=== PATIENT | female | born 1990 | race African-American/Black ===

== ENCOUNTER 2019-11-28 22:00 | Outpatient (CLI) | payer OTHER, SELFPAY ==
[2020-02-13 07:11] LABS: ALT/SGPT 11 U/L (12-78); BILIRUBIN,TOTAL 0.4 MG/DL (0.2-1.0); CREATININE FOR GFR 0.49 MG/DL (0.55-1.30); GLOMERULAR FILTRATION RATE > 60.0 (>60); HEPATITIS B SURFACE ANTIGEN NEGATIVE (NEGATIVE); LDH LACTATE DEHYDROGENASE 174 U/L (84-246); URIC ACID 4.4 MG/DL (2.6-6.0)
== END 2019-11-29 06:05 ==
LOC: M LDO 22:00
PROVIDERS: ATTEND Obstetrics & Gynecology
DX: O13.3 Gestational [pregnancy-induced] hypertension without significant proteinuria, third trimester (principal); O47.1 False labor at or after 37 completed weeks of gestation; Z3A.37 37 weeks gestation of pregnancy

== ENCOUNTER 2019-12-01 11:00 | Inpatient (IN) | payer SELFPAY ==
[~2019-12-01] VITALS: Ht 157.5 cm; Wt 69.3 kg
--- NOTE | 2019-12-01 15:13 | REPVR ---
PROCEDURE INFORMATION: Exam: US After First Trimester, Transabdominal Exam date and time: 12/01/2019 2:43 PM Age: 28 years old Clinical indication: Lmp or gestational age (in weeks): 37; Other: Hypertension; ; Additional info: Hypertension, , no prior sono, anatomy, dating TECHNIQUE: Imaging protocol: Real-time transabdominal obstetrical ultrasound of the maternal pelvis and a second or third trimester with image documentation. COMPARISON: No relevant prior studies available. FINDINGS: Other findings: The extremities and face/lips are not seen. Gestation: Single live intrauterine gestation. heart rate: heart rate is 155 beats minute. Presentation: There is a single intrauterine gestation in cephalic position. Placenta: Placenta is not previa. There is no abruption. Is grade 2 and fundal. Amniotic fluid: Amniotic fluid is normal for gestational age. Amniotic fluid index: Amniotic fluid index is 13.5. ANATOMY: Normal cisterna magna, stomach, kidneys, spine, four-chamber heart, outflow tracts, urinary bladder, three-vessel cord and cord insertion are seen. There is a nuchal cord noted by the technologist. BIOMETRY: Gestational age (AUA): Average ultrasonographic age is 36 weeks 5 days. Estimated due date (AUA): Estimated date of confinement is 12/24/2019. Estimated weight: Estimated weight is 3066 g. Biparietal diameter: Biparietal diameter, 36 weeks 0 days. Head circumference: Head circumference, 36 weeks 6 days. Abdominal circumference: Abdominal circumference, 37 weeks 4 days. Femur length: Femur length, 36 weeks 1 day. DOPPLER: Umbilical artery Doppler: Umbilical cord S/D ratio is 2.3. MATERNAL ANATOMY: Uterus: Unremarkable. Cervix: The cervix is closed at 3.8 cm. Right adnexa: Ovary is obscured by overlying bowel gas. Left adnexa: Ovary is obscured by overlying bowel gas. IMPRESSION: Single engine gestation. No old films are available. Anatomy is partial as above. Electronically signed by: Gordon Lehman On 12/01/2019 15:13:56 PM
[2019-12-01] MEDS ORDERED: PENICILLIN G POTASSIUM IV 5 MU in D5W MINI-BAG PLUS 100 ML IV STA (15:44)
[2019-12-01] MEDS ORDERED: PRENTAB9 PO (15:54)
[2019-12-01 16:11] LABS: HEMATOCRIT 39.7 % (36.0-47.0); HEMOGLOBIN 12.9 g/dl (12.0-15.5); MEAN CORPUSCULAR HEMOGLOBIN 30.9 pg (27.0-33.0); MEAN CORPUSCULAR HGB CONC 32.5 g/dl (32.0-36.5); PLATELET COUNT, AUTOMATED 111 10^3/uL (150-450); RED BLOOD COUNT 4.18 10^6/uL (4.00-5.40)
[2019-12-01] MEDS: miSOPROStol 50 MCG 1/2 TAB (S0191) PO SCH ×2 (17:08→21:08)
[2019-12-01 17:40] LABS: ALT/SGPT 12 U/L (12-78); BILIRUBIN,TOTAL 0.7 MG/DL (0.2-1.0); CREATININE FOR GFR 0.67 MG/DL (0.55-1.30); GLOMERULAR FILTRATION RATE > 60.0 (>60); HIV 1&2 SCREEN CENTAUR NEGATIVE (NEGATIVE); LDH LACTATE DEHYDROGENASE 176 U/L (84-246); URIC ACID 5.5 MG/DL (2.6-6.0)
[2019-12-01 18:58] LABS: CREATININE,RANDOM URINE 58.9 MG/DL; TOTAL PROTEIN,RANDOM URINE 7.8 MG/DL (0.0-12.0)
[2019-12-01] MEDS ORDERED: LR 1,000 ML IV SCH (21:35)
[2019-12-01] MEDS ORDERED: OXYTOCIN DRIP 30 UNITS in IV 1 EA IV SCH (21:45)
[2019-12-01] MEDS ORDERED: FENTANYL 2MCG/ML ROPIVACAINE 0.2% IN 0.9% NACL 100ML IVBAG As Ordered ONE (23:49)
[2019-12-02] MEDS ORDERED: OXYTOCIN 30 UNITS IN 0.9% NaCl 500ML IV BAG (J2590) As Ordered ONE ×2 (00:12→02:46)
[2019-12-02 00:23] LABS: HEMATOCRIT 40.9 % (36.0-47.0); HEMOGLOBIN 13.6 g/dl (12.0-15.5); MEAN CORPUSCULAR HEMOGLOBIN 31.3 pg (27.0-33.0); MEAN CORPUSCULAR HGB CONC 33.3 g/dl (32.0-36.5); MEAN CORPUSCULAR VOLUME 94.2 fl (80.0-96.0); PLATELET COUNT, AUTOMATED 127 10^3/uL (150-450); RED BLOOD COUNT 4.34 10^6/uL (4.00-5.40)
[2019-12-02] MEDS ORDERED: PENICILLIN G POTASSIUM IV 5 MU in D5W MINI-BAG PLUS 100 ML IV ONE (01:00)
[2019-12-02] MEDS ORDERED: OXYTOCIN DRIP 30 UNITS in IV 1 EA IV SCH (01:11)
[2019-12-02] MEDS ORDERED: ACETAMINOPHEN TAB 650MG DOSE (2X325MG) PO PRN (01:15)
[2019-12-02] MEDS ORDERED: METHYLERGONOVINE MALEATE 0.2 MG TAB PO PRN (01:15)
[2019-12-02] MEDS ORDERED: DIBUCAINE 1% OINTMENT 30GM TOP PRN (01:15)
[2019-12-02] MEDS ORDERED: RHOGAM 300 MCG (1500 IU) INJ (J2790) IM SCH (01:15)
[2019-12-02] MEDS ORDERED: MEASLES,MUMPS,RUBELLA VACCINE INJ (MMR-II) (90707) SC SCH (01:15)
[2019-12-02] MEDS ORDERED: IBUPROFEN 600MG TAB PO PRN (01:15)
[2019-12-02] MEDS ORDERED: DOCUSATE SODIUM 100 MG CAP PO PRN (01:15)
[2019-12-02] MEDS: IBUPROFEN 800 MG TAB PO PRN ×2 (01:28→09:49)
[2019-12-02] MEDS ORDERED: OXYTOCIN DRIP 30 UNITS in IV 1 EA IV ONE (02:45)
[2019-12-02] MEDS: ACETAMINOPHEN 500 MG TAB PO PRN ×2 (03:22→20:40)
[2019-12-02 04:46] VITALS: BP 139/89
[2019-12-02] MEDS ORDERED: PENICILLIN G POTASSIUM IV 2.5 MU in IV 1 EA IV SCH (05:00)
[2019-12-02] MEDS ORDERED: miSOPROStol 200 MCG TAB (S0191) PR ONE (05:15)
[2019-12-02 06:00] VITALS: BP 133/78
[2019-12-02 09:38] LABS: BASO % 0.4 % (0.0-1.0); EOS # 0.1 10^3/uL (0.0-0.5); EOS % 1.1 % (0.0-3.0); HEMATOCRIT 37.3 % (36.0-47.0); HEMOGLOBIN 12.4 g/dl (12.0-15.5); LYMPH # 1.6 10^3/uL (1.5-5.0); LYMPH % 18.3 % (24.0-44.0); MEAN CORPUSCULAR HGB CONC 33.2 g/dl (32.0-36.5); MEAN CORPUSCULAR VOLUME 93.3 fl (80.0-96.0); MONO # 0.5 10^3/uL (0.0-0.8); MONO % 6.2 % (0.0-5.0); NEUTROPHILS # 6.2 10^3/uL (1.5-8.5); NEUTROPHILS % 73.4 % (36.0-66.0); PLATELET COUNT, AUTOMATED 107 10^3/uL (150-450); WHITE BLOOD COUNT 8.5 10^3/uL (4.0-10.0)
[2019-12-02 09:47] LABS: APPEARANCE, URINE MANUAL CLEAR (CLEAR); COLOR, URINE MANUAL YELLOW (YELLOW)
[2019-12-02 09:48] LABS: BILIRUBIN, URINE MANUAL NEGATIVE (NEGATIVE); BLOOD URINE MANUAL NEGATIVE (NEGATIVE); GLUCOSE, URINE (UA) MANUAL NEGATIVE (NEGATIVE); KETONE, URINE MANUAL 1+ mg/dL (NEGATIVE); LEUKOCYTE ESTERASE, URINE MAN NEGATIVE (NEGATIVE); NITRITE, URINE MANUAL NEGATIVE (NEGATIVE); PROTEIN, URINE MANUAL NEGATIVE (NEGATIVE); UROBILINOGEN, URINE MANUAL NORMAL (NORMAL)
[2019-12-02] MEDS: PRENATAL VITAMINS CHEWABLE TABLET PO SCH (09:48)
[2019-12-02 16:58] LABS: AMPHETAMINES URINE REFLEX NEGATIVE (NEGATIVE); BARBITURATES URINE REFLEX NEGATIVE (NEGATIVE); BENZODIAZEPINES URINE REFLEX NEGATIVE (NEGATIVE); CANNABINOIDS URINE REFLEX NEGATIVE (NEGATIVE); COCAINE METABOLITE URINE REFLE NEGATIVE (NEGATIVE); METHADONE URINE REFLEX NEGATIVE (NEGATIVE); OPIATES URINE REFLEX NEGATIVE (NEGATIVE); PHENCYCLIDINE URINE REFLEX NEGATIVE (NEGATIVE)
[2019-12-02 18:00] VITALS: BP 135/89
[2019-12-03] MEDS: IBUPROFEN 800 MG TAB PO PRN (04:27)
[2019-12-03 06:00] VITALS: BP 155/91
[2019-12-03] MEDS: ACETAMINOPHEN 500 MG TAB PO PRN (07:52)
[2019-12-03] MEDS: PRENATAL VITAMINS CHEWABLE TABLET PO SCH (07:52)
--- NOTE | 2019-12-03 09:16 | IPNPDOC ---
Progress Note Date of Service: Dec 03, 2019 Day#: 1 Progress Note SUBJECT: Patient is a 28-year-old female who had an uncomplicated vaginal deli very. She has been ambulating, voiding spontaneously without issue and tolerating regular diet. Breast feeding without issue. OBJECTIVE: VITAL SIGNS: See vitals-some elevated BPS, afebrile. Alert and oriented times three. Breath sounds clear to auscultation. Heart rate: Regular rate and rhythm, no murmurs, rubs or gallops. Abdomen: Fundus firm at U-2. Soft, NTTP. Minimal lochia. ASSESSMENT: Day 1 PLAN: 1. Continue supportive nursing care. 2. Anticipate discharge to home tomorrow. 3. Preeclamptic labs ordered. VS, I&O, 24H, Fishbone Vital Signs/I&O Vital Signs Date Time Temp Pulse Resp B/P (MAP) Pulse Ox O2 Delivery O2 Flow Rate FiO2 12/03/19 06:00 97.9 65 18 155/91 (112) 12/02/19 18:00 100 Room Air Laboratory Data 24H LABS Laboratory Tests 2 12/02/19 15:55: Urine Opiates Screen NEGATIVE, Urine Methadone Screen NEGATIVE, Urine Barbiturates Screen NEGATIVE, Urine Phencyclidine Screen NEGATIVE, Urine Amphetamines Screen NEGATIVE, Urine Benzodiazepines Screen NEGATIVE, Urine Cocaine Metabolite Screen NEGATIVE, Urine Cannabinoids Screen NEGATIVE Microbiology Microbiology 11/29/19 Group B Streptococcus Screen ([facility]) - Final, Complete Strep Agalactiae Group B 11/29/19 Urine Culture - Final, Complete ILYA BARBOZA CNM Dec 03, 2019 09:16
[2019-12-03 14:00] VITALS: BP 136/80
[2019-12-03 14:08] LABS: HEMATOCRIT 35.5 % (36.0-47.0); HEMOGLOBIN 11.8 g/dl (12.0-15.5); MEAN CORPUSCULAR HEMOGLOBIN 31.1 pg (27.0-33.0); MEAN CORPUSCULAR HGB CONC 33.2 g/dl (32.0-36.5); MEAN CORPUSCULAR VOLUME 93.4 fl (80.0-96.0); PLATELET COUNT, AUTOMATED 126 10^3/uL (150-450)
[2019-12-03 14:59] LABS: ALT/SGPT 13 U/L (12-78); BILIRUBIN,TOTAL 0.3 MG/DL (0.2-1.0); CREATININE FOR GFR 0.68 MG/DL (0.55-1.30); GLOMERULAR FILTRATION RATE > 60.0 (>60); LDH LACTATE DEHYDROGENASE 295 U/L (84-246); URIC ACID 4.2 MG/DL (2.6-6.0)
[2019-12-03 18:15] VITALS: BP 144/98
[2019-12-04 06:00] VITALS: BP 138/92
[2019-12-04] MEDS: PRENATAL VITAMINS CHEWABLE TABLET PO SCH (07:35)
--- NOTE | 2020-01-17 09:39 | HPE ---
HISTORY OF PRESENT ILLNESS: Nickie is a 28-year-old 5, para 4-0-0-5 at 38 weeks gestation with a reported EDC of 12/15/2019. There is no record for review. She presents to Labor and Delivery with a report of nausea and vomiting, as well as mild headache that she did not take Tylenol for. She has reported it as a 5/10 for discomfort. She reports some mild low abdominal cramping. She denies bleeding, leakage of fluid. The fetus has been active. Her care was initiated at [facility] in [place]. She does not recall the name of the office or who she saw at the office. She reports moving to [facility] approximately three weeks ago. She has not established any care. There is no obstetric history for review. OBSTETRIC HISTORY: * June 2009, 38 week gestation, spontaneous vaginal delivery for a live male fetus. * September 2010, 38 weeks gestation, spontaneous vaginal delivery for a male fetus. * September 2011, 38 weeks gestation, spontaneous vaginal delivery for a male fetus. * February 2015, 38 weeks gestation, spontaneous vaginal delivery for a female fetus. That was complicated by depression and a new father of the baby. OBSTETRIC LABS: Labs were drawn here at this hospital two days ago. Her blood type is O positive. Antibody screen negative. Hepatitis B surface antigen negative. Syphilis is negative. Rubella, immune. Her gestational diabetic screening is unknown. Her GBS is unknown. It is due to be reported tomorrow in the morning. Her hepatitis C antibody is unknown. Urine culture and sensitivity unknown. She did undergo a preeclamptic profile at that time on the with an AST 12, ALT 11, LDH 174. PAST MEDICAL HISTORY: * Gestational diabetes. * Benign cyst in her right breast. * Arm surgery due to an accident in her young adulthood. PAST SURGICAL HISTORY: * Breast biopsy. * Arm surgery. FAMILY HISTORY: Diabetes, hypertension, cancer. SOCIAL HISTORY: She reports she is single. She reports she is a nonsmoker. She denies alcohol and drug use. She denies any history of sexually transmitted diseases. She denies history of abuse, physical, sexual, and emotional. ALLERGIES: No known drug allergies. CURRENT MEDICATIONS: vitamins. This history was obtained through verbal report interview with the patient. She was scheduled today for an induction of labor due to the diagnosis of gestational hypertension. OBJECTIVE: Temperature 97.4, pulse 67, respirations 18, blood pressure elevated in the 140s over 80s, 90s, and 100s. She is alert and oriented x3. She does not appear in any discomfort. She is smiling and talkative. Her heart rate is 130 with moderate variability, positive accelerations, negative decelerations. There is no pattern of regular contractions. Her abdomen is gravid, presentation. Estimated weight is 6.5 pounds, normal growth. KAN is 13.1 cm. Sterile vaginal exam shows 1 cm dilated, thick and high, no bloody show with the exam, moderate texture, and very posterior. ASSESSMENT: * Intrauterine at 38 weeks gestation. * heart rate Category I. * Gestational hypertension. * Inadequate care. PLAN: * Admit the patient to Labor and Delivery for consult with Dr. Renato Randolph. * Routine labs. * Out of bed ad-blair. * Regular diet at this time. * The patient desires an epidural for her labor coping when she is uncomfortable. * Plan to start misoprostol 50 mcg q.4 h. p.o. for cervical ripening. * Will likely start IV Pitocin for labor induction. * Will consider assisted rupture of membranes to augment her labor. * Risks, benefits, and alternatives to induction have been reviewed with the patient. All of her questions have been answered. She does verbally consent to emergency surgery and blood products if necessary. * I do anticipate cervical ripening, labor, and a vaginal delivery. MTDD
== END 2019-12-04 13:45 | disposition home or self-care (01) | DRG 807 ==
LOC: M LDO 11:00 → M LDI 12:34 → M OBS 12-02 04:45
PROVIDERS: ADMIT Advanced Practice Midwife; ATTEND Advanced Practice Midwife
PROC: 3E0P7GC Introduction of Other Therapeutic Substance into Female Reproductive, Via Natural or Artificial Opening (ICD-10-PCS; 2019-12-01)
PROC: 10E0XZZ Delivery of Products of Conception, External Approach (ICD-10-PCS; principal; 2019-12-02)
DX: O13.4 Gestational [pregnancy-induced] hypertension without significant proteinuria, complicating childbirth (principal); Z37.0 Single live birth; Z3A.38 38 weeks gestation of pregnancy; O72.1 Other immediate postpartum hemorrhage